=== PATIENT | female | born 1985 | race Two or more races ===

== ENCOUNTER 2023-12-13 12:27 | Inpatient (IN) | payer MEDICAID ==
[~2023-12-13] VITALS: Ht 149.9 cm; Wt 81.7 kg
[2023-12-13 13:32] LABS: Basophils # (auto) 0.1 10 ^3/uL (0-0.2); Basophils % (auto) 0.3 % (0.0-2.0); Eosinophils # (auto) 0.1 10 ^3/uL (0-0.8); Eosinophils % (auto) 0.9 % (0.0-7.0); Hematocrit 47.8 % (36.0-46.0); Lymphocytes % (auto) 12.5 % (10.0-50.0); Mean Corpuscular Hemoglobin 30.2 pg (28.0-32.0); Mean Corpuscular Hgb Conc. 33.6 g/dL (32.0-36.0); Mean Corpuscular Volume 89.8 fL (80.0-100.0); Monocytes # (auto) 0.6 10 ^3/uL (0-1.3); Monocytes % (auto) 3.7 % (0.0-12.0); Neutrophils # (auto) 13.5 10 ^3/uL (1.6-8.6); Neutrophils % (auto) 82.6 % (37.0-80.0); Red Blood Cells 5.32 10^6/uL (4.0-5.20); Red Cell Distribution Width 13.8 % (11.8-14.3); White Blood Cell 16.3 10^3/uL (4.4-10.8)
[2023-12-13 13:45] LABS: Chloride 108 mmol/L (98-107); Potassium 4.5 mmol/L (3.5-5.1); Sodium 140 mmol/L (136-145)
[2023-12-13 13:46] LABS: Anion Gap 8 (5-15); Carbon Dioxide 24 mmol/L (20-30)
[2023-12-13 13:47] LABS: Calcium 10.5 mg/dL (8.5-10.1)
[2023-12-13 13:51] LABS: BUN/Creatinine Ratio 21.6 (10.0-20.0); Blood Urea Nitrogen 16 mg/dL (9-23); Glucose 88 mg/dL (74-106)
[2023-12-13] MEDS: SODIUM CHLORIDE 0.9% 1,000 ML IV ONE ×3 (15:25→20:03)
[2023-12-13] MEDS ORDERED: DOCUSATE SOD 100 MG CAP PO PRN (15:30)
[2023-12-13] MEDS ORDERED: ACETAMINOPHEN 325 MG TAB PO PRN (15:30)
[2023-12-13] MEDS: cefTRIAXone 1GM/50ML D5W 50 ML IV ONE (15:36)
[2023-12-13] MEDS: ONDANSETRON HCL 4 MG/2 ML VIAL IV ONE (15:38)
[2023-12-13] MEDS: metroNIDAZOLE 500MG/100ML 100 ML IV ONE (16:01)
[2023-12-13] MEDS: SODIUM CHLORIDE 0.9% 1,000 ML IV SCH (17:15)
[2023-12-13] MEDS: metroNIDAZOLE 500 MG TAB PO ONE ×2 (17:40→17:46)
[2023-12-13] MEDS: ONDANSETRON HCL 4 MG/2 ML VIAL IV PRN (19:31)
[2023-12-13 19:55] VITALS: PULSE 66; RESP 18; O2SAT 98
[2023-12-13] MEDS ORDERED: metroNIDAZOLE 500MG/100ML 100 ML IV SCH (22:00)
[2023-12-13] MEDS: HYDROcodone-ACET 5/325MG TAB PO PRN (22:29)
[2023-12-13 23:02] VITALS: BP 99/54; PULSE 78; RESP 16; TEMP 97.1; O2SAT 99
[2023-12-13 23:03] VITALS: PULSE 67; RESP 18
[2023-12-14] MEDS: metroNIDAZOLE 500 MG TAB PO SCH (02:09)
[2023-12-14] MEDS ORDERED: SEMA2INJ3 SC (02:43)
[2023-12-14 04:28] LABS: Urine Bacteria FEW /hpf (None Seen); Urine Blood Negative /uL (Negative); Urine Clarity Turbid (Clear); Urine Color Yellow (Yellow); Urine Mucus MANY (None Seen); Urine Protein, UAD 1+ (Negative); Urine Specific Gravity 1.031 (1.001-1.035); Urine Urobilinogen Normal (Negative); Urine WBC 10 /hpf (0 - 5)
[2023-12-14 05:00] VITALS: BP 89/47; PULSE 93; RESP 16; TEMP 97.7; O2SAT 96
[2023-12-14 06:51] LABS: Basophils # (auto) 0 10 ^3/uL (0-0.2); Basophils % (auto) 0.3 % (0.0-2.0); Eosinophils # (auto) 0.3 10 ^3/uL (0-0.8); Hemoglobin 12.9 g/dL (12.2-16.2); Lymphocytes # (auto) 1.9 10 ^3/uL (0.4-5.4); Mean Corpuscular Hemoglobin 30.9 pg (28.0-32.0); Mean Corpuscular Hgb Conc. 33.9 g/dL (32.0-36.0); Mean Corpuscular Volume 91.2 fL (80.0-100.0); Monocytes # (auto) 0.5 10 ^3/uL (0-1.3); Monocytes % (auto) 8.5 % (0.0-12.0); Neutrophils # (auto) 3.7 10 ^3/uL (1.6-8.6); Neutrophils % (auto) 57.2 % (37.0-80.0); Nucleated Red Blood Cells % 0.1 %; Red Blood Cells 4.17 10^6/uL (4.0-5.20); Red Cell Distribution Width 13.5 % (11.8-14.3); White Blood Cell 6.4 10^3/uL (4.4-10.8)
[2023-12-14 07:13] LABS: Albumin 3.3 g/dL (3.2-4.8); Alkaline Phosphatase 57 U/L (46-116); Anion Gap 8 (5-15); Aspartate Aminotransferase 9 U/L (13-40); BUN/Creatinine Ratio 12.7 (10.0-20.0); Bilirubin, Total 0.9 mg/dL (0.2-1.0); Blood Urea Nitrogen 8 mg/dL (9-23); Calcium 8.5 mg/dL (8.7-10.4); Carbon Dioxide 22 mmol/L (20-30); Chloride 111 mmol/L (98-107); Glucose 73 mg/dL (74-106); Potassium 3.6 mmol/L (3.5-5.1); Sodium 141 mmol/L (136-145)
[2023-12-14 07:18] LABS: Alanine Aminotransferase < 9 U/L (7-40)
[2023-12-14 09:00] VITALS: BP 93/58; PULSE 64; RESP 16; TEMP 97.8; O2SAT 97
[2023-12-14] MEDS: cefTRIAXone 1GM/50ML D5W 50 ML IV SCH (09:45)
[2023-12-14] MEDS: PANTOPRAZOLE 40 MG/10 ML VIAL INJ IV SCH (09:46)
[2023-12-14] MEDS: MORPHINE SULFATE INJ 2 MG/ml SYRG IV PRN ×2 (10:23→15:58)
[2023-12-14 13:00] VITALS: BP 92/53; PULSE 63; RESP 16; TEMP 98.1; O2SAT 98
[2023-12-14 17:00] VITALS: BP 100/60; PULSE 74; RESP 18; TEMP 98.2; O2SAT 95
[2023-12-14 20:00] VITALS: PULSE 58; RESP 16; O2SAT 100
[2023-12-14 23:13] VITALS: BP 110/61; PULSE 58; RESP 16; TEMP 97.8; O2SAT 100
[2023-12-15 06:26] VITALS: BP 95/60; PULSE 64; RESP 18; TEMP 98.1; O2SAT 99
[2023-12-15 06:27] VITALS: BP 95/64; PULSE 68; RESP 16; TEMP 97.9; O2SAT 96
[2023-12-15 06:34] LABS: Anion Gap 6 (5-15); Carbon Dioxide 23 mmol/L (20-30); Chloride 112 mmol/L (98-107); Potassium 3.3 mmol/L (3.5-5.1); Sodium 141 mmol/L (136-145)
[2023-12-15 06:36] LABS: Calcium 8.3 mg/dL (8.5-10.1)
[2023-12-15 06:40] LABS: Glucose 78 mg/dL (74-106)
[2023-12-15 06:41] LABS: Magnesium 1.6 mg/dL (1.6-2.6)
[2023-12-15 06:51] LABS: BUN/Creatinine Ratio 7.7 (10.0-20.0); Blood Urea Nitrogen < 5 mg/dL (9-23)
[2023-12-15 08:59] VITALS: BP 109/62; PULSE 75; RESP 16; TEMP 98.4; O2SAT 97
[2023-12-15 13:00] VITALS: BP 117/64; PULSE 64; RESP 18; TEMP 98.7; O2SAT 96
== END 2023-12-15 14:20 | disposition home or self-care (01) | DRG 392 ==
LOC: ER 12:27 → OVERFLOW 15:59 → CENTRAL 21:30
PROVIDERS: ADMIT Nurse Practitioner Family; ATTEND Internal Medicine Geriatric Medicine
DX: K52.9 Noninfective gastroenteritis and colitis, unspecified (principal); N39.0 Urinary tract infection, site not specified; D72.829 Elevated white blood cell count, unspecified; Z90.49 Acquired absence of other specified parts of digestive tract
CPT/HCPCS: 36415; 74176; 76705; 80048; 80053; 81001; 83605; 83735; 84702; 85025; 87040; 93005; 96365; 96375; C9113; G0378; J2405